=== PATIENT | female | born 1980 | race Caucasian/White ===

== ENCOUNTER 2018-11-10 07:55 | Emergency (ER) | payer BC ==
[2018-11-10] MEDS ORDERED: ASPIRIN 81 MG CHEW PO ONE ×2 (08:00→08:15)
[2018-11-10] MEDS ORDERED: ATEN-1 PO (08:05)
[2018-11-10] MEDS ORDERED: CITA-145 PO (08:05)
[2018-11-10 08:13] LABS: PLATELET COUNT, AUTOMATED 264 K/uL (150-450)
[2018-11-10 08:22] LABS: INR 0.95
[2018-11-10] MEDS ORDERED: METOPROLOL TART 5 MG/5 ML VIAL IVP ONE (08:25)
--- NOTE | 2018-11-10 08:26 | EKG ---
FACILITY: [facility] [place] PATIENT NAME: THAIS CHANCE : [id number] MR: [id number] V: [id number] EXAM DATE: ORDERING PHYSICIAN: CHARY ROGER TECHNOLOGIST: JACINTO Test Reason : CP Blood Pressure : / mmHG Vent. Rate : 082 BPM Atrial Rate : 082 BPM P-R Int : 144 ms QRS Dur : 094 ms QT Int : 388 ms P-R-T Axes : 021 000 009 degrees QTc Int : 453 ms Normal sinus rhythm Normal ECG No previous ECGs available Confirmed by LAMINE MONTGOMERY ([id number]) on 11/10/2018 9:38:00 PM Referred By: BECKIE Confirmed By:LAMINE MONTGOMERY
--- NOTE | 2018-11-10 08:27 | ER Report ---
History and Physical Time Seen By MD: 08:15 Hx. of Stated Complaint: elevated heart rate, chest pain HPI/ROS CHIEF COMPLAINT: Chest pain HISTORY OF PRESENT ILLNESS: Patient is a 38-year-old female who presents to the emergency department with complaint of fast heart rate, palpitations along with substernal chest pain and pressure. The pain and pressure does not seem to be positionally related to exertion he related. She states that he just feels uncomfortable. She is camping here in [place] but lives just outside of [place] normally. He admits to a history of hypertension as well as anxiety she takes atenolol 25 mg daily along with citalopram. She has no prior history of heart attack or a blood clot, however she states she has been seen in the emergency department for similar symptoms and told that this was noncardiac chest pain.. She has had a tubal ligation and is not on any other type of estrogen replaceme nts. She is not a smoker. There is no recent history of infectious symptoms such as fevers or chills but the patient does admit to a nonproductive cough. Symptoms began around 1 AM this morning and had been continuous. Because of the nature of the symptoms and duration of symptoms patient presents to the emergency department for evaluation. REVIEW OF SYSTEMS: Constitutional: No fever, no chills. Eyes: No discharge. ENT: No sore throat. Cardiovascular: Chest pressure, palpitations Respiratory: Shortness of breath Gastrointestinal: No abdominal pain, no vomiting. Genitourinary: No hematuria. Musculoskeletal: No back pain. Skin: No rashes. Neurological: No headache. Allergies: Coded Allergies: No Known Drug Allergies (Unverified , 11/10/18) Home Meds Active Scripts Naproxen (NAPROXEN) 375 Mg Tablet, 375 MG PO TID for PAIN, #30 TAB 0 Refills Prov:CHARY ROGER MD 11/10/18 Reported Medications Citalopram Hydrobromide (CITALOPRAM HBR) 20 Mg Tablet, 20 MG PO QDAY, #5 TAB 11/10/18 Atenolol (ATENOLOL) 50 Mg Tablet, 1 TAB PO QDAY, TAB 11/10/18 Past Medical/Surgical History Hypertension, anxiety Constitutional Vital Sign - Last 24 Hours 11/10/18 11/10/18 11/10/18 11/10/18 07:59 08:00 08:30 09:30 Temp 98.7 Pulse 85 86 81 74 Resp 20 12 7 16 B/P (MAP) 138/87 134/81 (98) 121/78 (92) 121/70 (87) Pulse Ox 98 97 96 94 O2 Delivery Room Air Physical Exam General Appearance: The patient is alert, has no immediate need for airway protection and no signs of toxicity. Eyes: Pupils equal and round no pallor or injection. Sclera clear ENT, Mouth: Mucous membranes are moist. Respiratory: There are no retractions, lungs are clear to auscultation. Cardiovascular: Regular rate and rhythm. Gastrointestinal: Abdomen is soft and non tender, no masses, bowel sounds normal. Neurological: Awake alert mild anxious appearance Skin: Warm and dry, no rashes. Musculoskeletal: Neck is supple non tender. Extremities are nontender, nonswollen and have full range of motion. Medical Decision Making Data Points Result Diagram: 11/10/18 0801 11/10/18 0801 Laboratory Hematology Test 11/10/18 08:01 Red Blood Count 4.13 M/uL (4.17-5.56) Mean Corpuscular Volume 100.2 fL (80.0-96.0) Mean Corpuscular Hemoglobin 34.9 pg (26.0-33.0) Mean Corpuscular Hemoglobin Concent 34.8 g/dL (32.0-36.0) Red Cell Distribution Width 13.6 % (11.5-14.5) Mean Platelet Volume 6.7 fL (7.2-11.1) Neutrophils (%) (Auto) 76.5 % (39.4-72.5) Lymphocytes (%) (Auto) 13.8 % (17.6-49.6) Monocytes (%) (Auto) 8.7 % (4.1-12.4) Eosinophils (%) (Auto) 0.5 % (0.4-6.7) Basophils (%) (Auto) 0.5 % (0.3-1.4) Nucleated RBC Relative Count (auto) 0.0 /100WBC Neutrophils # (Auto) 5.3 K/uL (2.0-7.4) Lymphocytes # (Auto) 1.0 K/uL (1.3-3.6) Monocytes # (Auto) 0.6 K/uL (0.3-1.0) Eosinophils # (Auto) 0.0 K/uL (0.0-0.5) Basophils # (Auto) 0.0 K/uL (0.0-0.1) Nucleated RBC Absolute Count (auto) 0.00 K/uL Prothrombin Time 12.7 seconds (12.0-14.4) Prothromb Time International Ratio 0.95 Activated Partial Thromboplast Time 25 seconds (23-35) D-Dimer Quantitative (PE/DVT) 0.87 ug/ml (0-0.50) Sodium Level 135 mmol/L (137-145) Potassium Level 3.7 mmol/L (3.5-5.0) Chloride Level 98 mmol/L (98-107) Carbon Dioxide Level 23 mmol/L (22-31) Blood Urea Nitrogen 12 mg/dl (7-18) Creatinine 0.70 mg/dl (0.52-1.04) Glomerular Filtration Rate Calc > 60.0 Random Glucose 93 mg/dl (75-110) Calcium Level 9.0 mg/dl (8.4-10.2) Total Bilirubin 0.9 mg/dl (0.2-1.3) Aspartate Amino Transf (AST/SGOT) 62 U/L (0-35) Alanine Aminotransferase (ALT/SGPT) 81 U/L (0-56) Alkaline Phosphatase 90 U/L (0-126) Troponin I < 0.012 ng/ml Total Protein 8.6 g/dl (6.3-8.2) Albumin 5.0 g/dl (3.5-5.0) Lipase 277 U/L (23-300) Helicobacter pylori IgG Antibody Negative (NEGATIVE) Chemistry Test 11/10/18 08:01 White Blood Count 7.0 k/uL (4.5-11.0) Red Blood Count 4.13 M/uL (4.17-5.56) Hemoglobin 14.4 g/dL (12.0-16.0) Hematocrit 41.4 % (34.0-47.0) Mean Corpuscular Volume 100.2 fL (80.0-96.0) Mean Corpuscular Hemoglobin 34.9 pg (26.0-33.0) Mean Corpuscular Hemoglobin Concent 34.8 g/dL (32.0-36.0) Red Cell Distribution Width 13.6 % (11.5-14.5) Platelet Count 264 K/uL (150-450) Mean Platelet Volume 6.7 fL (7.2-11.1) Neutrophils (%) (Auto) 76.5 % (39.4-72.5) Lymphocytes (%) (Auto) 13.8 % (17.6-49.6) Monocytes (%) (Auto) 8.7 % (4.1-12.4) Eosinophils (%) (Auto) 0.5 % (0.4-6.7) Basophils (%) (Auto) 0.5 % (0.3-1.4) Nucleated RBC Relative Count (auto) 0.0 /100WBC Neutrophils # (Auto) 5.3 K/uL (2.0-7.4) Lymphocytes # (Auto) 1.0 K/uL (1.3-3.6) Monocytes # (Auto) 0.6 K/uL (0.3-1.0) Eosinophils # (Auto) 0.0 K/uL (0.0-0.5) Basophils # (Auto) 0.0 K/uL (0.0-0.1) Nucleated RBC Absolute Count (auto) 0.00 K/uL Prothrombin Time 12.7 seconds (12.0-14.4) Prothromb Time International Ratio 0.95 Activated Partial Thromboplast Time 25 seconds (23-35) D-Dimer Quantitative (PE/DVT) 0.87 ug/ml (0-0.50) Glomerular Filtration Rate Calc > 60.0 Calcium Level 9.0 mg/dl (8.4-10.2) Total Bilirubin 0.9 mg/dl (0.2-1.3) Aspartate Amino Transf (AST/SGOT) 62 U/L (0-35) Alanine Aminotransferase (ALT/SGPT) 81 U/L (0-56) Alkaline Phosphatase 90 U/L (0-126) Troponin I < 0.012 ng/ml Total Protein 8.6 g/dl (6.3-8.2) Albumin 5.0 g/dl (3.5-5.0) Lipase 277 U/L (23-300) Helicobacter pylori IgG Antibody Negative (NEGATIVE) Coagulation Test 11/10/18 08:01 Prothrombin Time 12.7 seconds Prothromb Time International Ratio 0.95 Activated Partial Thromboplast Time 25 seconds D-Dimer Quantitative (PE/DVT) 0.87 ug/ml EKG/Imaging EKG Interpretation EKG shows normal sinus rhythm with a ventricular rate of [address] segment or T-wave abnormalities are noted. There is no prior ED contacts at [facility] and no other EKGs to compare with. Monitor Interpretation: Normal Sinus Rhythm Imaging Chest x-ray negative CT scan of the chest negative for pulmonary embolism ED Course/Re-evaluation Clinical Indication for ER IV: IV Access ED Course 11/10/2018 8:36:15 am patient with symptoms of chest pain palpitations and shortness of breath. Differential diagnosis includes but is not limited to acute coronary syndrome, pulmonary embolism, pneumothorax, pulmonary embolism, pneumonia, chest wall pain. Plan at this time will be cardiac workup and disposition pending studies. Decision to Disposition Date: Nov 10, 2018 Decision to Disposition Time: 09:50 Depart Departure Latest Vital Signs Vital Signs Date Time Temp Pulse Resp B/P (MAP) Pulse Ox O2 Delivery O2 Flow Rate FiO2 11/10/18 09:30 74 16 121/70 (87) 94 11/10/18 07:59 98.7 Room Air Impression: Primary Impression: Chest wall pain Additional Impression: Palpitations Condition: Improved Disposition: HOME OR SELF-CARE New Scripts Naproxen (NAPROXEN) 375 Mg Tablet 375 MG PO TID for PAIN, #30 TAB 0 Refills Prov: CHARY ROGER MD 11/10/18 Patient Instructions: Chest Wall Pain (ED), Palpitations (DC) Additional Instructions: Continue your atenolol medication as directed. Call and make an appointment with her primary care provider on a routine basis when he returned home. If symptoms worsen at any time he should return to be reevaluated at the nearest emergency department. Problem Qualifiers CHARY ROGER MD Nov 10, 2018 08:27
[2018-11-10] MEDS ORDERED: IOPAMIDOL 76% 100 ML INFUS BTL 100 ML ONE (08:50)
[2018-11-10] MEDS ORDERED: NS(*) 0.9% 50 ML BAG 50 ML ONE (08:50)
[2018-11-10 09:30] VITALS: BP 121/70
--- NOTE | 2018-11-10 09:35 | RADIOLOGY IMAGING REPORT ---
[facility]AC[facility] PATIENT NAME: Oz Lee : 1980 MR: [id number] V: [id number] EXAM DATE: ORDERING PHYSICIAN: CHARY ROGER TECHNOLOGIST: Location: [facility] [place] Patient: Oz Lee : 1980 Visit/Account:[id number] Date of Sevice: 11/10/2018 CT CTA CHEST W & W/O CON HISTORY: elevated d dimer TECHNIQUE: CTA chest with intravenous contrast attention to pulmonary arteries. Sagittal, coronal a nd slab 3D MIP coronal reconstructed images were also created for further evaluation and interpretati on. One of the following dose optimization techniques was utilized in the performance of this exam: Autom ated exposure control; adjustment of the mA and/or kV according to the patient's size; or use of an i terative reconstruction technique. Specific details can be referenced in the facility's radiology CT exam operational policy. CONTRAST: 75 mL [id number]. COMPARISON: None. FINDINGS: Heart/vessels: Satisfactory opacification of the pulmonary arteries without visualized pulmonary emb olus. Mediastinum: Fluid within the esophagus raising the possibility of dysmotility and/or reflux. Lymph nodes: Negative. Lungs/pleura: Negative. No pulmonary infiltrate or consolidation. Mild atelectasis within the right lower lobe and lingula. Visualized upper abdomen: Negative. Bones/soft tissues: Negative. IMPRESSION: No acute findings. Negative for pulmonary embolus. Report Dictated By: Dave Burrows MD at 11/10/2018 9:26 AM Report E-Signed By: Dave Burrows MD at 11/10/2018 9:29 AM WSN:[id number]
[2018-11-10] MEDS ORDERED: NAPR375T44 PO (09:53)
== END 2018-11-10 10:08 | disposition home or self-care (01) ==
LOC: ER 08:10
DX: R07.89 Other chest pain (principal); R00.2 Palpitations; I10 Essential (primary) hypertension; F41.9 Anxiety disorder, unspecified; Z79.899 Other long term (current) drug therapy
CPT/HCPCS: 71045; 71275; 83690; 84484; 85025; 85379; 85610; 85730; 86677; 93005; 96374; 99285; J7050; Q9967; 82040; 82247; 82310; 82374; 82435; 82565; 82947; 84075; 84132; 84155; 84295; 84450; 84460; 84520